=== PATIENT | male | born 1970 | race Caucasian/White ===

== ENCOUNTER 2019-06-16 10:16 | Outpatient (CLI) | payer OTHER, SELFPAY ==
[2019-06-16 10:32] LABS: Basophils Percent Auto 0.4 % (0.2-1.2); Eosinophils Absolute Auto 0.3 K/mm3 (0-0.3); Eosinophils Percent Auto 2.7 % (0-4.4); Hematocrit 45.6 % (42.0-52.0); Hemoglobin 14.9 g/dL (14.0-18.0); Immature Granulocyte Absolute 0.03 K/mm3 (0.00-0.031); Immature Granulocyte Percent A 0.3 % (0-0.5); Lymphocytes Absolute Auto 3.04 K/mm3 (0.9-3.2); Lymphocytes Percent Auto 26.9 % (18.3-44.2); Mean Corpuscular HGB Conc 32.7 g/dl (32-36); Mean Corpuscular Hemoglobin 27.3 pg (26-34); Mean Corpuscular Volume 83.5 fl (80-100); Monocytes Absolute Auto 0.6 K/mm3 (0.1-0.6); Neutrophils Absolute Auto 7.3 K/mm3 (1.3-6.7); Neutrophils Percent Auto 64.7 % (45.5-73.1); Platelet Count Result 284 k/mm3 (150-375); Red Blood Count 5.46 M/mm3 (4.6-6.20); Red Cell Distribution Width 14.6 % (11.5-14.5); White Blood Count 11.3 K/mm3 (4.5-10.0)
[2019-06-16 12:20] LABS: Alanine Aminotransferase 63 U/L (4-50); Albumin Level 3.9 g/dL (3.5-5.1); Alkaline Phosphatase 140 U/L (38-126); Aspartate Amino Transferase 60 U/L (17-59); Bilirubin,Total 0.5 mg/dL (0.2-1.3); Blood Urea Nitrogen 12 mg/dL (9-20); Carbon Dioxide 23 mmol/L (22-30); Chloride 99 mmol/L (98-107); Estimated Glomerular Filt Rate > 60; Glucose 114 mg/dL (75-110); Potassium 4.4 mmol/L (3.4-5.0); Sodium 138 mmol/L (137-145)
== END 2019-06-16 10:17 | disposition home or self-care (01) ==
LOC: ANHLAB 10:21
PROVIDERS: PCP Internal Medicine Gastroenterology; Visit Provider Internal Medicine Hematology & Oncology
DX: C34.91 Malignant neoplasm of unspecified part of right bronchus or lung (principal)
CPT/HCPCS: 36415; 80053; 85025

== ENCOUNTER 2019-06-16 11:03 | Outpatient (CLI) | payer OTHER, SELFPAY ==
--- NOTE | ~2019-06-16 | CT_ITS ---
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 The dose-length product (DLP) was 859.41 mGy-cm. Ite rative reconstruction was used. COMPARISON: 12/12/2018 FINDINGS: Surgical changes are again noted in the right lung with volume loss in the right hemithorax . A stable 5 mm nodule is seen in association with the left major fissure in the left lower lobe on i mage 58. The lungs are free of acute opacities. No pathologically enlarged thoracic lymph nodes are i dentified. The heart size is normal. There is no pleural effusion or pneumothorax. Stones or sludge a re again noted in the gallbladder. A chronic mild T6 compression fracture is again noted as are heale d bilateral rib fractures.. IMPRESSION: 1. Changes of right partial pneumonectomy without evidence of recurrent or metastatic disease. Reviewed, dictated and finalized at location A. CLEANER IMPRESSION: 1. Changes of right partial pneumonectomy without evidence of recurrent or meta static disease.
[2019-06-16 11:30] LABS: Blood Urea Nitrogen 10 mg/dL (8-26); Estimated Glomerular Filt Rate > 60
== END 2019-06-16 11:04 | disposition home or self-care (01) ==
LOC: ANHIMG 11:07
PROVIDERS: PCP Internal Medicine Gastroenterology; Visit Provider Internal Medicine Hematology & Oncology
DX: C34.91 Malignant neoplasm of unspecified part of right bronchus or lung (principal)
CPT/HCPCS: 36415; 71260; 80053; 85025; Q9967

== ENCOUNTER 2019-06-17 09:52 | Outpatient (CLI) | payer OTHER, SELFPAY ==
--- NOTE | ~2019-06-17 | US_ITS ---
EXAMINATION: US abdomen complete EXAM DATE: 06/17/2019 11:06 INDICATION: Elevated liver enzymes. TECHNIQUE: Multiple grayscale and Doppler images of the complete abdomen were obtained (by a technolo gist who performed the scan) and subsequently reviewed. There is no prior study for comparison. FINDINGS: The abdominal aorta is normal in caliber. Visualized portion IVC is patent. The pancreatic head a nd body are normal in appearance. The pancreatic tail is not visualized. Mildly echogenic liver parenchyma, possible hepatic steatosis. There are no focal liver lesions iden tified, but there is suboptimal evaluation from poor acoustic window. There is no evidence of intra hepatic biliary duct dilation. Portal venous flow was seen in the hepatopedal, normal direction and has normal Doppler waveform. Common bile duct measures 4-5 mm, which is normal. The gallbladder wall is normal in thickness, with expected amount of distention. No sonographic evidence of pericholecystic fluid. Technologist indic ated there were gallstones present. Technologist performing exam reports patient did not demonstra te sonographic Damon's sign. Please note that this sign is less reliable in patients who have recei fuad pain medication. Right kidney: There is normal contour and echogenicity. It measures 11.7 x 5.6 x 5.4 centimeters. There are no focal renal lesions identified. There is no hydronephrosis. Left kidney: There is normal contour and echogenicity. It measures 11.8 x 6.5 x 5.9 centimeters. T here are no focal renal lesions identified. There is no hydronephrosis. The spleen measures 12.2 centimeters and is morphologically normal. IMPRESSION: 1. Probable cholelithiasis. 2. Possible hepatic steatosis. Reviewed, dictated and finalized at location B. T PERFORMER
== END 2019-06-17 09:53 | disposition home or self-care (01) ==
LOC: ANHIMG 09:53
PROVIDERS: PCP Internal Medicine Gastroenterology; Visit Provider Internal Medicine Hematology & Oncology
DX: R74.8 Abnormal levels of other serum enzymes (principal)
CPT/HCPCS: 76700